=== PATIENT | male | born 1990 | race Caucasian/White ===

== ENCOUNTER 2023-03-05 22:35 | Emergency (ER) | payer MEDICAID ==
[2023-03-05 22:53] VITALS: BP 151/103; O2SAT 100
--- NOTE | 2023-03-05 23:07 | ED Physician Documentation ---
PD HPI MHE - Stated complaint Stated Complaint: MHE - Chief complaint Chief Complaint: MHE - History obtained from History obtained from: Patient - Additional information Additional information: HPI from patient. Patient HPI is limited, as patient is asking to leave the moment I enter the room. I did review the nurses triage note, as well as the brief amount of information provided on the police form brought in along with the patient. Apparently, this patient was at the [facility] and left yesterday. Patient admits to using methamphetamines last night, and his chief complaint is feelings of paranoia since using his methamphetamines last night. He had apparently indicated to the triage nurse that feeling paranoid is not uncommon for him when he is using meth. He presents to [facility] ED at this time voluntarily; he was apparently initially requesting some form of help/treatment, but, as noted above, he is now requesting to be allowed to leave the ED. He does answer few of my questions. He does tell me that he is not having any thoughts of hurting himself nor others. He expresses a desire to never use drugs, including methamphetamines, again, and he says that he realizes this is the only way he will get better in the long-run. I explained to him that if he were willing to talk to me a little bit more, I would likely be able to provide him with some medications that would hopefully reduce the paranoid thoughts and thus allow him to not be as uncomfortable while waiting for the effect of the methamphetamines to wear off. He acknowledges this, but says he does not want any medications at this time and, once again, reiterates that he very much wants to leave. At this time, I do not have information that would indicate the patient is an imminent danger to himself or others, and thus he is allowed to leave the ED on his own volition. He did not stay long enough to allow for a physical examination (I have recorded, below, what could be gathered from observation w sanchez I was in the room with him). He did answer my questions regarding orientation, and he is awake, alert, and oriented x 3. Review of Systems Psychiatric: reports: Other (paranoid thoughts). denies: Suicidal, Homicidal PD PAST MEDICAL HISTORY - Past Medical History Cardiovascular: Other Other Past Medical History: SVT and ablation at age 9 - Past Surgical History Past Surgical History: Yes - Present Medications Home Medications: Ambulatory Orders Medication Instructions Recorded Confirmed No Known Home Medications 03/05/23 03/05/23 - Allergies Allergies/Adverse Reactions: Allergies Allergy/AdvReac Type Severity Reaction Status Date / Time No Known Drug Allergies Allergy Verified 03/05/23 22:52 - Social History Does the pt smoke?: Yes Smoking Status: Current every day smoker Does the pt drink ETOH?: Yes Does the pt have substance abuse?: Yes Substance Use and Type: Meth PD ED PE NORMAL - Vitals Vital signs reviewed: Yes - General General: Alert and oriented X 3, No acute distress, Well developed/nourished - Neuro Neuro: Alert and oriented X 3 Eye Opening: Spontaneous Motor: Obeys Commands Verbal: Oriented GCS Score: 15 - Psych Psych: Normal mood, Normal affect Results - Vitals Vitals: Vital Signs - 24 hr 03/05/23 22:43 Temperature 36.7 C Heart Rate 99 Respiratory 22 Rate Blood Pressure 151/103 H O2 Saturation 100 Oxygen O2 Source Room air PD Medical Decision Making - ED course Complexity details: considered differential, d/w patient Departure - Departure Disposition: 01 Home, Self Care Clinical Impression: Paranoid behavior, Methamphetamine abuse Condition: Good Instructions: ED Drug Abuse General Discharge Date/Time: 03/05/23 23:15
== END 2023-03-05 23:15 | disposition home or self-care (01) ==
LOC: ED 22:35
DX: F15.10 Other stimulant abuse, uncomplicated (principal); F22 Delusional disorders; F17.200 Nicotine dependence, unspecified, uncomplicated
CPT/HCPCS: 99281; 99283